=== PATIENT | female | born 1975 | race Caucasian/White ===

== ENCOUNTER 2018-04-22 22:12 | Emergency (ER) | payer OTHER ==
[~2018-04-22] VITALS: Ht 175.3 cm; Wt 104.3 kg
[~2018-04-22 22:12] MED LIST: LEVSOD112 PO
== END 2018-04-23 00:31 | disposition home or self-care (01) ==
LOC: ER 22:12
DX: S81.011A Laceration without foreign body, right knee, initial encounter (principal); M54.5 Low back pain; M25.572 Pain in left ankle and joints of left foot; E03.9 Hypothyroidism, unspecified; Z91.040 Latex allergy status; Z87.891 Personal history of nicotine dependence; W18.30XA Fall on same level, unspecified, initial encounter
CPT/HCPCS: 12002; 73562-RT; 99282-25